=== PATIENT | female | born 1950 | race Caucasian/White ===

== ENCOUNTER → 2018-01-30 | Outpatient (CLI) | payer MEDICARE, OTHER ==
[~2018-01-30] MED LIST: NAPR500 PO; OXYACE5T PO
[2018-01-30 18:11] LABS: BASOPHILS ABSOLUTE AUTO 0.03 K/mm3 (0.00-0.23); BASOPHILS PERCENT AUTO 0 % (0-2); EOSINOPHILS PERCENT AUTO 0 % (0-6); Hematocrit 42.3 % (33.0-51.0); Hemoglobin 14.3 g/dL (11.5-16.0); IMMATURE GRAN ABSOLUTE AUTO 0.02 K/mm3 (0.00-0.10); IMMATURE GRAN PERCENT AUTO 0 % (0-1); LYMPHOCYTES ABSOLUTE AUTO 0.33 K/mm3 (0.84-5.20); LYMPHOCYTES PERCENT AUTO 5 % (21-46); MONOCYTES ABSOLUTE AUTO 0.18 K/mm3 (0.16-1.47); MONOCYTES PERCENT AUTO 3 % (4-13); Mean Corpuscular HGB 28.5 pg (26.0-34.0); Mean Corpuscular HGB Conc 33.8 g/dL (31.5-36.5); Mean Corpuscular Volume 84 fL (80-100); Mean Platelet Volume 9.5 fL (9.1-12.4); NEUTROPHILS ABSOLUTE AUTO 6.22 K/mm3 (1.96-9.15); NEUTROPHILS PERCENT AUTO 92 % (41-73); Platelet Count 179 K/mm3 (150-400); RDW Coefficient Variation 13.7 % (11.7-14.2); RDW Standard Deviation 42.4 fL (35.1-46.3); Red Blood Cell Count 5.01 M/mm3 (3.80-5.20); White Blood Cell Count 6.78 K/mm3 (4.00-11.30)
[2018-01-30 18:21] LABS: Alanine Aminotransfer (ALT/SGP 34 U/L (12-78); Albumin, Blood 3.6 g/dL (3.4-5.0); Albumin/Globulin Ratio 0.8 (0.8-1.8); Alk Phos 90 U/L (40-126); Anion Gap 10 mmol/L (6-16); Aspartate Aminotrans (AST/SGOT 20 U/L (12-37); Bilirubin, Total 0.8 mg/dL (0.1-1.0); Blood Urea Nitrogen 13 mg/dL (8-24); Bun/Creatinine Ratio 17.8 (12.0-20.0); CO2, Blood 26 mmol/L (21-32); Calcium, Blood 8.3 mg/dL (8.5-10.1); Chloride, Blood 102 mmol/L (98-108); Creatinine, Blood 0.73 mg/dL (0.40-1.00); Globulin, Blood 4.6 g/dL (2.2-4.0); Glomerular Filtration Rate >60 (60-); Glucose, Blood 124 mg/dL (70-99); Potassium, Blood 3.6 mmol/L (3.5-5.5); Sodium, Blood 138 mmol/L (136-145); Total Protein, Blood 8.2 g/dL (6.4-8.2)
== END ==
LOC: LAB EV 18:07 → LAB SHORT 18:07
PROVIDERS: Physician Assistant
DX: R55 Syncope and collapse (principal)
CPT/HCPCS: 80053; 85025

== ENCOUNTER 2022-04-27 17:34 | Inpatient (IN) | payer MEDICARE ==
[~2022-04-27] VITALS: Ht 165.1 cm; Wt 97.1 kg
[2022-04-27 18:19] LABS: BASOPHILS ABSOLUTE AUTO 0.02 K/mm3 (0.00-0.23); BASOPHILS PERCENT AUTO 0 % (0-2); EOSINOPHILS PERCENT AUTO 0 % (0-6); Hematocrit 40.3 % (33.0-51.0); Hemoglobin 13.8 g/dL (11.5-16.0); IMMATURE GRAN ABSOLUTE AUTO 0.05 K/mm3 (0.00-0.10); IMMATURE GRAN PERCENT AUTO 0 % (0-1); LYMPHOCYTES ABSOLUTE AUTO 1.11 K/mm3 (0.84-5.20); LYMPHOCYTES PERCENT AUTO 8 % (21-46); MONOCYTES ABSOLUTE AUTO 0.57 K/mm3 (0.16-1.47); MONOCYTES PERCENT AUTO 4 % (4-13); Mean Corpuscular HGB 28.6 pg (26.0-34.0); Mean Corpuscular HGB Conc 34.2 g/dL (31.5-36.5); Mean Corpuscular Volume 84 fL (80-100); Mean Platelet Volume 9.5 fL (9.1-12.4); NEUTROPHILS PERCENT AUTO 88 % (41-73); Platelet Count 220 K/mm3 (150-400); RDW Coefficient Variation 12.7 % (11.7-14.2); RDW Standard Deviation 38.5 fL (35.1-46.3); Red Blood Cell Count 4.82 M/mm3 (3.80-5.20); White Blood Cell Count 14.75 K/mm3 (4.00-11.30)
[2022-04-27 18:47] LABS: Albumin, Blood 3.6 g/dL (3.4-5.0); Albumin/Globulin Ratio 0.8 (0.8-1.8); Bilirubin, Total 1.5 mg/dL (0.1-1.0); Bun/Creatinine Ratio 30.5 (12.0-20.0); Calcium, Blood 8.9 mg/dL (8.5-10.1); Creatinine, Blood 0.56 mg/dL (0.40-1.00); Globulin, Blood 4.4 g/dL (2.2-4.0); Potassium, Blood 3.8 mmol/L (3.5-5.5)
[2022-04-27] MEDS ORDERED: AMLODIPINE BESYL5 MG PO (22:11)
[2022-04-27 22:51] LABS: Source, Urine Clean Catch
[2022-04-27 22:54] LABS: Bilirubin, Urine Neg (Neg); Blood, Urine Neg (Neg); Glucose Qualitative, Urine Neg (Neg); Ketones, Urine Neg (Neg); Leukocyte Esterase, Urine 1+ (Neg); Nitrite, Urine Neg (Neg); Protein, Urine Neg (Neg); Specific Gravity, Urine 1.005 (1.003-1.022); Urobilinogen, Urine NORM (Normal); pH, Urine 6.5 (5.0-8.0)
[2022-04-27 23:06] LABS: Appearance, Urine Clear (Clear); Color, Urine Yellow (P-Yellow)
[2022-04-27 23:08] LABS: Red Blood Cells, Urine Not Seen /hpf (0-2); Squamous Epithelial Cells Few /hpf (Few)
[2022-04-27 23:09] LABS: Bacteria Few /hpf
[2022-04-28 02:43] LABS: Influenza A, PCR NEGATIVE (NEGATIVE); Influenza B, PCR NEGATIVE (NEGATIVE); Resp Syncytial Virus, PCR NEGATIVE (NEGATIVE); SARS-Cov-2 (COVID-19) PCR, MMC NEGATIVE (NEGATIVE)
--- NOTE | 2022-04-28 04:28 | NUR ---
PT ARRIVES TO FLOOR FROM ED AT 0400. PT IS ALERT AND ORIENTED AND ABLE TO MAKE NEEDS KNOWN. AMBULATES FREELY TO BED. ANSWERES ADMISSION QUESTIONS AND IS COMPLIANT WITH ASSESSMENT. BED IS LOW AND LOCKED, CALL LIGHT WITHIN REACH.
--- NOTE | 2022-04-28 05:40 | NUR ---
ASSUMED CARE OF PT AT 0400 FROM ED. PT IS A&OX4, SBA TO BR AND IS ABLE TO MAKE NEEDS KNOWN. ADMIT FOR APPENDICITIS AND POSSIBLE SURGICAL INTERVENTION. PAIN IS CONTROLLED WITH PRN MORPHINE. RECEIVING IV ABX. PLEASANT WITH CARES. WILL CONTINUE TO MONITOR THIS PT AND GIVE REPORT TO ONCOMING NURSE.
--- NOTE | 2022-04-28 12:48 | NUR ---
PT ARRIVED TO THE ROOM FROM PACU AT 1215. PT DROWSY BUT AWAKENS WHEN SPOKEN TO AND ORIENTED. LAP SITES X3 C/D/I AND STERI STRIPS IN PLACE. PT PROVIDED WITH CLEAR LIQUIDS. WILL CONTINUE TO MONITOR.
[2022-04-28] MEDS ORDERED: BENZ100A PO (16:46)
[2022-04-28] MEDS ORDERED: OXYC10TA19 PO (18:11)
[2022-04-28] MEDS ORDERED: AMOCLA875 PO (18:12)
--- NOTE | 2022-04-28 18:45 | NUR ---
OOZING FROM SURGICAL SITE PT REPORTED BENDING OVER TO PICK SOMETHING UP OFF THE FLOOR, AND HER LOWER ABD LAP SITE BEGAN OOZING. INCISION SITE WAS COVERED WITH 2X2 GAUZE AND A BANDAID, EXAMINED APPROXIMATELY 10 MINUTES LATER AND NO FURTHER DRAINAGE. DR. PABLO NOTIFIED AND REPORTED OK FOR PT TO CONTINUE WITH DISCHARGE HOME. ABD BINDER IN PLACE.
--- NOTE | 2022-04-28 19:26 | NUR ---
SHIFT SUMMARY PT IS POD#[address] PABLO. SHE IS MEETING ALL GOALS, TOLERATING PO, VOIDING, ABLE TO AMBULATE AND PAIN MANAGED. PT IS WAITING FOR HER FAMILY TO TAKE HER HOME. REPORT GIVEN TO JULIAN PHELPS.
--- NOTE | 2022-04-28 20:15 | NUR ---
PT VERB UNDERSTANDING OF DISCHARGE INSTRUCTIONS.IV DCD WITH CATH INTACT. DISCHARGED TO HOME WITH FAMILY VIA W/C.ASSISTED TO VEHICLE.
== END 2022-04-28 19:56 | disposition home or self-care (01) | DRG 343 ==
LOC: ER 17:34 → SURS 04-28 03:16
PROVIDERS: Physician Assistant; Student in an Organized Health Care Education/Training Program; ADMIT Surgery
PROC: 0DTJ4ZZ Resection of Appendix, Percutaneous Endoscopic Approach (ICD-10-PCS; principal; 2022-04-28 09:30)
DX: K35.80 Unspecified acute appendicitis (principal); I10 Essential (primary) hypertension; Z20.822 Contact with and (suspected) exposure to COVID-19; Z88.7 Allergy status to serum and vaccine; Z79.899 Other long term (current) drug therapy
CPT/HCPCS: 0241U; 74177; 76705; 80053; 81001; 83690; 85025; 86850; 86900; 86901; 87086; 88304; 96374; 96375; 99285-25; J0295; J0744; J1100; J1885; J2250; J2270; J2405; J2704; J2710; J2795; J3010; J7040; Q9967

== ENCOUNTER 2022-10-07 09:08 | Day surgery (SDC) | payer MEDICARE ==
[~2022-10-07] VITALS: Ht 165.1 cm; Wt 92.4 kg
[~2022-10-07 09:08] MED LIST changes: +AMLODIPINE BESYL5 MG PO; +AMOCLA875 PO; +BENZ100A PO; +OXYC10TA19 PO
[2022-10-07] MEDS ORDERED: CENTRUM SILVER1 EAC2 (09:21)
[2022-10-07] MEDS ORDERED: Calcium Acetat667 MG (09:21)
[2022-10-07] MEDS ORDERED: METHI10 (09:22)
[2022-10-07] MEDS ORDERED: Vitamin D1000 UNI1 (09:22)
== END 2022-10-07 11:27 | disposition home or self-care (01) ==
LOC: ORSCSDS 09:08
PROVIDERS: Internal Medicine Gastroenterology
PROC: 0DBN8ZX Excision of Sigmoid Colon, Via Natural or Artificial Opening Endoscopic, Diagnostic (ICD-10-PCS; principal; 2022-10-07 10:30)
PROC: 0DBM8ZX Excision of Descending Colon, Via Natural or Artificial Opening Endoscopic, Diagnostic (ICD-10-PCS; principal; 2022-10-07 10:30)
PROC: 0DBK8ZX Excision of Ascending Colon, Via Natural or Artificial Opening Endoscopic, Diagnostic (ICD-10-PCS; principal; 2022-10-07 10:30)
DX: Z12.11 Encounter for screening for malignant neoplasm of colon (principal); Z80.0 Family history of malignant neoplasm of digestive organs; D12.4 Benign neoplasm of descending colon; D12.2 Benign neoplasm of ascending colon; K63.5 Polyp of colon; I10 Essential (primary) hypertension
CPT/HCPCS: 88305; J2704; J7120